=== PATIENT | male | born 1980 | race Caucasian/White ===

== ENCOUNTER 2019-02-24 19:05 | Emergency (ER) | payer OTHER ==
[2019-02-24 19:59] VITALS: BP 159/91
[2019-02-24] MEDS ORDERED: IBUPROFEN 800 MG TABLET PO ONE (20:12)
[2019-02-24] MEDS ORDERED: DIPH/PERTUSS(ACELL)/TETANUS VAC/PF 0.5 ML SYR (>=10YO) IM ONE (20:12)
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
== END 2019-02-24 20:52 | disposition home or self-care (01) ==
LOC: ER 19:05
DX: S40.812A Abrasion of left upper arm, initial encounter (principal); S80.212A Abrasion, left knee, initial encounter; M54.2 Cervicalgia; Z23 Encounter for immunization; V53.5XXA Driver of pick-up truck or van injured in collision with car, pick-up truck or van in traffic accident, initial encounter
CPT/HCPCS: 90715; 99283